=== PATIENT | male | born 1970 | race African-American/Black ===

== ENCOUNTER 2021-03-02 17:47 | Inpatient (IN) | payer BC, OTHER ==
[~2021-03-02] VITALS: Ht 195.6 cm; Wt 127.9 kg
[2021-03-02 17:52] VITALS: BP 162/89
[2021-03-02 20:21] LABS: BASOPHILS 0.7 % (0.0-2.0); EOSINOPHILS 2.6 % (0.0-3.0); HEMATOCRIT 42.3 % (42.0-52.0); HEMOGLOBIN 14.5 gm/dL (14.0-18.0); LYMPHOCYTES 12.4 % (24.0-44.0); MCHC 34.2 g/dL (28.0-37.0); MCV 93.6 fL (80.0-100.0); MONOCYTES 8.5 % (1.0-8.0); PLATELET COUNT 220 thou/uL (150-400); POLYS 75.8 % (36.0-66.0); RBC 4.52 mil/uL (4.50-6.00); RDW 13.2 % (10.5-14.5); WBC 13.1 thou/uL (4.0-11.0)
[2021-03-02 20:37] LABS: CREATININE 1.1 mg/dL (0.7-1.3); POTASSIUM 4.1 mmol/L (3.5-5.1)
[2021-03-02 20:42] LABS: URINE BILIRUBIN NEGATIVE (Negative); URINE BLOOD 2+ (Negative); URINE CLARITY CLEAR; URINE COLOR YELLOW; URINE GLUCOSE-RANDOM* NEGATIVE (Negative); URINE KETONES NEGATIVE (Negative); URINE LEUKOCYTES-REFLEX NEGATIVE (Negative); URINE NITRITE-REFLEX NEGATIVE (Negative); URINE PROTEIN (DIPSTICK) TRACE (Negative); URINE SPECIFIC GRAVITY 1.025 (1.005-1.035); URINE UROBILINOGEN 0.2 E.U./dl (0.2-1.0)
[2021-03-02 20:44] LABS: ALBUMIN 3.4 g/dL (3.4-5.0); TOTAL BILIRUBIN 1.1 mg/dL (0.2-1.0); TOTAL PROTEIN 7.6 g/dL (6.4-8.2)
[2021-03-02 20:55] LABS: BACTERIA-REFLEX 1-9 Few /HPF (None Seen); CASTS None Seen /LPF (None Seen); CRYSTALS None Seen /LPF (None Seen); MUCUS 0-3 Light strn/LPF (None Seen); SQUAMOUS None Seen /LPF (0-3); URINE RBC 3-10 Few /HPF (NONE SEEN); URINE WBC-REFLEX 0-5 Rare /HPF (0-5)
[2021-03-02 22:06] VITALS: BP 162/89
[2021-03-02 23:00] VITALS: BP 147/88
[2021-03-03 00:16] VITALS: BP 149/86
--- NOTE | 2021-03-03 01:52 | NUR ---
pt arrived to unit via w/c from ER. pt alert and oriented x4, appropriate and cooperative. IVF infusing to left ac IV site. pt with enlarged and swollen right testicle. pt given po Tylenol as ordered for pain. pt up to bathroom to void without difficulty. pt appears to be sleeping at present. call light in reach. will continue to monitor.
[2021-03-03] MEDS ORDERED: METFORMIN HCL500 MG PO (03:24)
[2021-03-03 06:16] LABS: HEMATOCRIT 38.2 % (42.0-52.0); HEMOGLOBIN 13.2 gm/dL (14.0-18.0); MCH 32.2 pg (26.0-34.0); MCHC 34.5 g/dL (28.0-37.0); MCV 93.3 fL (80.0-100.0); RBC 4.1 mil/uL (4.50-6.00); RDW 13.2 % (10.5-14.5)
[2021-03-03 06:19] LABS: CALCIUM 8.5 mg/dL (8.5-10.1); CREATININE 1.1 mg/dL (0.7-1.3); POTASSIUM 3.7 mmol/L (3.5-5.1)
[2021-03-03 08:02] VITALS: BP 136/87
[2021-03-03 20:05] VITALS: BP 155/98
--- NOTE | 2021-03-04 04:10 | NUR ---
Pt. rested quietly at intervals during the night when checked on during frequent rounds. He c/o right sided scrotal pain and po pain meds given (see emar) with some relief. Packing to right scrotal area is intact.
[2021-03-04 05:36] LABS: GLYCOHEMOGLOBIN (HGB A1C) 5.3 % (4.8-5.6)
[2021-03-04 07:49] VITALS: BP 143/102
[2021-03-04 13:03] VITALS: BP 143/102
[2021-03-04 17:18] VITALS: BP 134/81
--- NOTE | 2021-03-04 18:28 | NUR ---
Assumed care of pt this morning from machinist 2nd shift. Client was in bed resting at this time. Client was alert and oriented x4, and presented calm and pleasant at the time of the assessment. Client can ambulate without walker or cane, but does require time given injury to groin area. Client voiced pain 7/10 in groin, but stated that he did not want to take anything at this time. Client stated that he was having trouble adjusting to hospital and that he was used to being at home and being able to do his ADLs without assistance. Client stated that he wanted bed and linens changed, in addition to asking for soap and cleanser. This was provided to client. Client took all medications well, and did take oxycodone for pain after pain increased to 10/[address] Choi spoke with client, and client is discharging tomorrow. Client asked for consult with home health due to need for wound packing. Per Dr. Choi, wound packing to be changed BID. Client's wound was packed by nurse with wet to dry dressing, and client was given fentanyl for pain after this for 10/10 pain after wound packing. Client later given tylenol prn 500mg to help with pain as client voiced that he does not take "strong pills usually and wants to avoid the hard stuff." Client stated that this did provided pain relief at this time. Client is currently resting in room. IV site intact, patent, and shows no signs of redness or infiltration. Client voices no further concerns.
[2021-03-04 20:45] VITALS: BP 145/95
--- NOTE | 2021-03-05 04:44 | NUR ---
NO SIGNIFICANT CHANGES DURING THE NIGHT. DRESSING CHANGED TO RT SCROTAL WOUND. PT GIVEN PAIN MEDICATION PRIOR TO DRESSING CHANGE. VSS. AFEBRILE. PT UP AD ALAYNA AROUND THE ROOM WITH STEADY GAIT. SCHEDULED ANTIBIOTICS GIVEN ORDERED. PROGRESSING TOWARD POC GOALS. PT IS ANTICIPATING D/C HOPEFULLY LATER TODAY.
[2021-03-05 05:26] LABS: HEMATOCRIT 39.5 % (42.0-52.0); HEMOGLOBIN 14.1 gm/dL (14.0-18.0); MCH 32.9 pg (26.0-34.0); MCHC 35.6 g/dL (28.0-37.0); MCV 92.2 fL (80.0-100.0); RBC 4.29 mil/uL (4.50-6.00); WBC 7.2 thou/uL (4.0-11.0)
[2021-03-05 05:39] LABS: CALCIUM 8.5 mg/dL (8.5-10.1); CREATININE 0.9 mg/dL (0.7-1.3); POTASSIUM 3.9 mmol/L (3.5-5.1)
[2021-03-05 07:49] VITALS: BP 129/90
--- NOTE | 2021-03-05 11:16 | NUR ---
ASSUMED PT CARE THIS AM. PT HAS IV SITE ON LAC SALINE LOCKED. PT IS ON ROOM AIR. CHANGE WOUND DRESSING THIS AM ON R SCROTUM. PT IS ACCUCHECK ACHS. PT IS UP AD ALAYNA. GIVEN PAIN MEDICATION PRIOR DOING WOUND DRESSING PER PT REQUEST. PT TOLERATED DIET WELL. PT ON THE BED WATCHING TV, BED ON THE LOWEST POSITION, SIDE RAILS UP, CALL LIGHT WITHIN REACH. WILL CONTINUE TO MONITOR PT. FOLLOW POC.
[2021-03-05] MEDS ORDERED: PERCOCET PO (12:52)
[2021-03-05] MEDS ORDERED: CLEOCIN HCL150 MG PO (12:52)
--- NOTE | 2021-03-05 15:44 | NUR ---
PT ADMITTED RELATED TO SCROTAL ABSCESS. CM REVIEWED CHART AND SPOKE WITH CARE TEAM. CM MET WITH PT AT BEDSIDE THIS DAY. PT APPEARED TO BE A&O X4. CM ROLE INTRODUCED. PT INDICATED HE RESIDES IN A TOWN HOUSE ALONE WITH 8 STEPS TO ENTER AND A FULL FLIGHT INSIDE. 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 PT INDICATED NO PREVIOUS HH OR OP THERAPY. PT INDICATED HIS PCP IS DR. MERCEDES STEVENS AT [facility] IN [place]. PT INDICATED HE WANTS HOME NAEL TO ASSIT WITH HIS DAILY WOUND CARE [place]. CM INDICATED THAT HH USUALLY DOESN'T DO DAILY WC THAT THEY WILL NEED TO BE ABLE TO EDUCATE PT OR A FAMILY MEMBER TO DO WC WHEN THEY CAN'T PROVIDE IT. CM FAXED TO [facility] AND THEY CAN'T ACCEPT. [facility] IS ACCEPTING. PT IS AWARE. NO OTHER CM INTERVENTION INDICATED. CASE CLOSED.
[2021-03-05 15:48] VITALS: BP 129/90
== END 2021-03-05 16:37 | disposition home health service (06) | DRG 718 ==
LOC: ER 17:47 → EROBS 21:30 → 4W 23:03
PROVIDERS: Hospitalist; Nurse Practitioner; Nurse Practitioner Family; ADMIT Hospitalist; ATTEND Hospitalist
PROC: 0V950ZZ Drainage of Scrotum, Open Approach (ICD-10-PCS; principal; 2021-03-03)
DX: N49.2 Inflammatory disorders of scrotum (principal); R73.03 Prediabetes; F12.90 Cannabis use, unspecified, uncomplicated; F17.210 Nicotine dependence, cigarettes, uncomplicated; Z20.822 Contact with and (suspected) exposure to COVID-19; Z79.899 Other long term (current) drug therapy; Z88.5 Allergy status to narcotic agent; Z79.84 Long term (current) use of oral hypoglycemic drugs; Z87.81 Personal history of (healed) traumatic fracture; Z86.711 Personal history of pulmonary embolism; Z83.3 Family history of diabetes mellitus
CPT/HCPCS: 10040